=== PATIENT | male | born 1950 | race Caucasian/White ===

== ENCOUNTER 2017-06-21 09:39 | Observation (INO) | payer OTHER ==
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
[2017-06-21] MEDS ORDERED: fentaNYL 100 MCG/2 ML INJ IVP ONE ×2 (09:50→10:43)
[2017-06-21] MEDS ORDERED: IOPAMIDOL (ISOVUE-300) 100 ML BTL ONE (09:54)
[2017-06-21] MEDS ORDERED: ONDANSETRON 4 MG/2 ML VIAL IVP ONE ×2 (10:09→11:20)
[2017-06-21 10:29] LABS: ABSOLUTE IMMATURE GRANULOCYTES 0.07 10^3/uL (0.00-0.10); ADD DIFF? NO; ADD MORPH? NO; ADD SCAN? NO; ATYPICAL LYMPHOCYTE FLAG 10 (0-99); FRAGMENT RBC FLAG 0 (0-99); HEMOGLOBIN 15.6 g/dL (13.7-17.5); LEFT SHIFT FLG 10 (0-99); LIPEMIA HEMOLYSIS FLAG 80 (0-99); MEAN CELL HEMOGLOBIN 30.8 pg (27.9-34.1); MEAN CELL HEMOGLOBIN CONCENTR. 32.5 g/dL (32.4-36.7); MEAN CELL VOLUME 94.7 fL (81.5-99.8); MEAN PLATELET VOLUME 10.6 fL (8.7-11.7); PLATELET CLUMPS FLAG 20 (0-99); PLATELET COUNT 344 10^3/uL (150-400); RED BLOOD CELL COUNT 5.07 10^6/uL (4.40-6.38); RED CELL DISTRIBUTION WIDTH 14.2 % (11.5-15.2)
[2017-06-21] MEDS ORDERED: NS 1,000 ML IV ONE ×2 (10:49→12:29)
[2017-06-21 10:51] LABS: ANION GAP 14 mEq/L (8-16); CALCIUM 8.9 mg/dL (8.5-10.4); CARBON DIOXIDE 27 mEq/l (22-31); CHLORIDE 102 mEq/L (97-110); CREATININE 0.8 mg/dL (0.7-1.3); GLOMERULAR FILTRATION RATE > 60; GLUCOSE 85 mg/dL (70-100); POTASSIUM 4.5 mEq/L (3.5-5.2); SODIUM 143 mEq/L (134-144)
[2017-06-21] MEDS ORDERED: ONDANSETRON 4 MG/2 ML VIAL ONE (11:19)
[2017-06-21] MEDS ORDERED: PROMETHAZINE HCL 25 MG/ML INJ ONE (11:48)
[2017-06-21] MEDS ORDERED: PROMETHAZINE HCL 25 MG/ML INJ IVP ONE (11:49)
[2017-06-21] MEDS ORDERED: HYDROCODONE/APAP 5/325 TAB PO PRN (12:30)
[2017-06-21] MEDS ORDERED: LR 1,000 ML IV SCH (12:30)
[2017-06-21] MEDS ORDERED: ONDANSETRON 4 MG/2 ML VIAL IVP PRN (12:30)
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
[2017-06-22] MEDS: KETOROLAC 15 MG/1 ML SDV IVP PRN ×4 (00:08→17:29)
[2017-06-22] MEDS: HYDROCODONE/APAP 5/325 TAB PO PRN ×3 (00:10→16:05)
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
[2017-06-23] MEDS: KETOROLAC 15 MG/1 ML SDV IVP PRN ×3 (00:40→16:44)
[2017-06-23] MEDS: HYDROCODONE/APAP 5/325 TAB PO PRN ×3 (00:41→23:51)
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
[2017-06-24] MEDS: HYDROCODONE/APAP 5/325 TAB PO PRN ×2 (05:46→10:37)
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
[2017-06-24 10:18] VITALS: BP 142/77; PULSE 95; RESP 16; TEMP 97.7; O2SAT 96
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
== END 2017-06-24 11:53 | disposition home health service (06) ==
LOC: F3N 14:25
PROVIDERS: ADMIT Surgery; ATTEND Surgery
DX: S42.201A Unspecified fracture of upper end of right humerus, initial encounter for closed fracture (principal); S42.111A Displaced fracture of body of scapula, right shoulder, initial encounter for closed fracture; S22.42XA Multiple fractures of ribs, left side, initial encounter for closed fracture; G20 Parkinson's disease; V49.40XA Driver injured in collision with unspecified motor vehicles in traffic accident, initial encounter; Y92.410 Unspecified street and highway as the place of occurrence of the external cause
CPT/HCPCS: 71260; 73030; 73560; 74177; 92523; 96361; 96374; 96375; 96376; 97112; 97116; 97162; 97166; 97530; 97535; 99285; G0378; G8987; G8988; G8989; 82947-QW; A4565; J1885; J2405; J2550; J3010; Q9967